=== PATIENT | male | born 1970 | race African-American/Black ===

== ENCOUNTER 2017-01-26 23:52 | Emergency (ER) | payer SELFPAY ==
[~2017-01-26] VITALS: Ht 172.7 cm; Wt 77.0 kg
[2017-01-27] MEDS ORDERED: HYDROCODONE/ACETAMINOPHEN 5/325MG TABLET PO ONE (00:15)
[2017-01-27] MEDS ORDERED: CLINDAMYCIN HCL 150MG CAPSULE PO SCH (00:15)
[2017-01-27 00:41] VITALS: BP 154/102
== END 2017-01-27 00:42 | disposition home or self-care (01) ==
LOC: ER 23:52
DX: K04.7 Periapical abscess without sinus (principal); F17.200 Nicotine dependence, unspecified, uncomplicated; F12.10 Cannabis abuse, uncomplicated; J45.909 Unspecified asthma, uncomplicated; Z88.1 Allergy status to other antibiotic agents
CPT/HCPCS: 99283

== ENCOUNTER 2017-09-01 13:12 | Emergency (ER) | payer SELFPAY ==
[~2017-09-01] VITALS: Ht 180.3 cm; Wt 80.0 kg
[2017-09-01 20:30] VITALS: BP 127/79
[2017-09-01] MEDS ORDERED: ACETAMINOPHEN 325MG TABLET PO STA (20:34)
[2017-09-01] MEDS ORDERED: AZITHROMYCIN 500 MG in DEXT 5% WATER 250 ML IV SCH (20:45)
[2017-09-01] MEDS ORDERED: SODIUM CHLORIDE 0.9% 1000ML BAG (SEPSIS BOLUS) IV ONE (20:45)
[2017-09-01 21:17] LABS: CLARITY URINE CLEAR (CLEAR); COLOR URINE YELLOW (YELLOW); KETONES URINE TRACE (NEGATIVE); LEUKOCYTE ESTERASE URINE NEGATIVE (NEGATIVE); NITRITE URINE NEGATIVE (NEGATIVE); OCCULT BLOOD URINE 2+ (NEGATIVE); PROTEIN URINE 3+ (NEGATIVE); SPECIFIC GRAVITY URINE 1.032 (1.005-1.030)
[2017-09-01 21:43] LABS: BASOPHILS % 0.2 % (0.0-2.0); HEMATOCRIT. 48.2 % (42.0-52.0); HEMOGLOBIN. 16.2 g/dL (14.0-18.0); LYMPHOCYTES % 8.4 % (20.0-50.0); MEAN CORPUSCULAR HEMOGLOBIN 29.1 pg (28.0-32.0); MEAN CORPUSCULAR VOLUME 86.5 fL (80.0-94.0); MEAN PLATELET VOLUME 8.7 fl (7.4-10.4); MONOCYTES % 5.5 % (2.0-8.0); NEUTROPHILS % 85.9 % (40.0-76.0); PLATELET 154 x1000/uL (130-400); RED BLOOD CELL COUNT 5.58 mill/uL (4.7-6.1); RED CELL DISTRIBUTION WIDTH 12.9 % (11.6-14.6)
[2017-09-01 21:45] LABS: INR 1.2; PROTHROMBIN TIME 12.3 sec (9.4-11.6)
[2017-09-01 21:47] LABS: CARBON DIOXIDE 26 mEq/L (21-32); CHLORIDE 96 mEq/L (98-107)
[2017-09-01] MEDS ORDERED: IPRATROPIUM BROMIDE (0.02%) 0.5MG/2.5ML NEB HHN STA (21:50)
[2017-09-01] MEDS ORDERED: METHYLPREDNISOLONE SOD SUCC 125 MG/2 ML VIAL IV STA (21:50)
[2017-09-01] MEDS ORDERED: ALBUTEROL (0.083%) 2.5MG/3ML NEB HHN STA (21:50)
== END 2017-09-01 23:27 | disposition home or self-care (01) ==
LOC: ER 14:11 → CANBEDREQ 23:42
DX: J44.9 Chronic obstructive pulmonary disease, unspecified (principal); F17.200 Nicotine dependence, unspecified, uncomplicated; R79.1 Abnormal coagulation profile; F12.10 Cannabis abuse, uncomplicated; Z87.891 Personal history of nicotine dependence; Z87.01 Personal history of pneumonia (recurrent); Z88.1 Allergy status to other antibiotic agents
CPT/HCPCS: 36415; 71045; 80053; 81001; 83605; 85025; 85610; 87040; 87086; 93005; 94640; 96361; 96365; 96366; 96375; 99285; J0456; J2930; J7030; J7611; Z7610; J7060

== ENCOUNTER 2018-07-25 11:42 | Emergency (ER) | payer SELFPAY ==
[~2018-07-25] VITALS: Ht 180.3 cm; Wt 68.0 kg
[2018-07-25 12:27] VITALS: BP 137/86
== END 2018-07-25 14:48 | disposition left against medical advice (07) ==
LOC: ER 13:19
DX: R05 Cough (principal); R06.02 Shortness of breath; Z53.21 Procedure and treatment not carried out due to patient leaving prior to being seen by health care provider

== ENCOUNTER 2023-03-22 02:21 | Emergency (ER) | payer MEDICAID, OTHER ==
[~2023-03-22] VITALS: Ht 177.8 cm; Wt 80.0 kg
[2023-03-22 02:28] VITALS: O2SAT 97
[2023-03-22] MEDS ORDERED: ACETAMINOPHEN 325MG TABLET PO STA (04:40)
[2023-03-22] MEDS ORDERED: SODIUM CHLORIDE 0.9% 1000ML BAG (SEPSIS BOLUS) IV ONE (04:45)
[2023-03-22] MEDS ORDERED: VANCOMYCIN 1G PREMIX 200 ML IV ONE (04:45)
[2023-03-22] MEDS ORDERED: CEFOXITIN SODIUM 1 G in DEXTROSE 5% WATER 50 ML IV SCH (04:45)
[2023-03-22 05:44] LABS: HEMATOCRIT. 43.6 % (42.0-52.0); HEMOGLOBIN. 14.8 g/dL (14.0-18.0); MEAN CORPUSCULAR HEMOGLOBIN 29.3 pg (28.0-32.0); MEAN CORPUSCULAR VOLUME 86.3 fL (80.0-94.0); RED BLOOD CELL COUNT 5.05 mill/uL (4.7-6.1); RED CELL DISTRIBUTION WIDTH 13.5 % (11.6-14.6)
[2023-03-22] MEDS ORDERED: HYDROCODONE/ACETAMINOPHEN 5/325MG TABLET PO ONE (06:00)
[2023-03-22 06:03] LABS: PROTHROMBIN TIME 10.7 sec (9.6-11.0)
[2023-03-22 07:31] LABS: CHLORIDE 100 mEq/L (98-107)
[2023-03-22 09:29] LABS: MEAN PLATELET VOLUME 8.3 fl (7.4-10.4); PLATELET 249 x1000/uL (130-400)
[2023-03-22 09:33] LABS: PLATELET ESTIMATE NORMAL
[2023-03-22] MEDS ORDERED: IOHEXOL-300 100 ML BOTTLE ONE (11:39)
[2023-03-22] MEDS ORDERED: HYDROCODONE/ACETAMINOPHEN 5/325MG TABLET PO NR (13:00)
[2023-03-23] MEDS ORDERED: CEFOXITIN SODIUM 1 G in DEXTROSE 5% WATER 50 ML IV SCH (04:00)
[2023-03-23] MEDS ORDERED: VANCOMYCIN 1G PREMIX 200 ML IV SCH (13:45)
[2023-03-23 15:46] VITALS: TEMP 98.4
[2023-03-23 22:20] VITALS: BP 134/89; PULSE 98; RESP 16
== END 2023-03-23 23:18 | disposition left against medical advice (07) ==
LOC: ER 02:21
DX: L02.511 Cutaneous abscess of right hand (principal)
CPT/HCPCS: 80053; 85025; 85610; 87040; 36415; 84145; 73201; 96365; 96366 ×2; 99285; 96367; 96368; Q9967; J0694 ×2; J3370 ×2; J7060 ×2; J7030; Z7610